=== PATIENT | male | born 2000 | race Caucasian/White ===

== ENCOUNTER 2022-05-23 11:02 | Emergency (ER) | payer OTHER ==
[~2022-05-23] VITALS: Ht 172.7 cm; Wt 80.0 kg
[2022-05-23 11:04] VITALS: BP 120/68
[2022-05-23] MEDS ORDERED: triamcinolone acetonide 0.5% cream 15gm TP STA (12:29)
== END 2022-05-23 12:48 | disposition home or self-care (01) ==
LOC: ER 11:03
DX: L23.7 Allergic contact dermatitis due to plants, except food (principal)
CPT/HCPCS: 99283

== ENCOUNTER 2024-09-11 00:28 | Emergency (ER) | payer OTHER ==
[~2024-09-11] VITALS: Ht 170.2 cm; Wt 81.8 kg
[2024-09-11 00:41] VITALS: BP 122/85; PULSE 91; RESP 12; O2SAT 97
--- NOTE | 2024-09-11 00:56 | Physician Documentation ---
History of Present Illness ~ Chief Complaint: Nose bleed Stated Complaint: NOSE BLEED Time Seen by MD: 00:41 Primary Medical Doctor: NONE- NEW TO [facility] Patient presents to the emergency room with epistaxis. Symptoms began approximately 1/2 hour prior to arrival. No prior instances of bloody noses. Has been suffering from a viral infection this past week with positive sick contacts. No traumas Medication Reconciliation Allergies: Coded Allergies: No Known Allergies (Unverified , 09/11/24) Past Medical History Past Medical History: No Pertinent History Past Surgical History: no surgical history Alcohol Use: None Drug Use: none Lives with: Family Lives In: Home Occupation: employed Review of Systems ROS All review of systems negative except as per HPI Physical Exam Vital Signs: Temperature: 96.9, Source: Temporal, Heart Rate: 91, Respiratory Rate: 12, BP: 122/85, Pulse Oximetry: 97, Weight: 81.850 Oxygen Flow Rate: 0 Physical Exam General: Patient is awake, alert, oriented x4 in no acute distress and well appearing.~ Head: Normocephalic and atraumatic. Eyes: Conjunctival normal. EOMI. PERRL. ENT: Mucous membranes moist. Dried blood in nasal passage of right nostril. No active bleeding. No blood in posterior pharynx Neck: Supple, trachea is midline. Chest: Clear to auscultation bilaterally without rales, rhonchi, or wheezes. There is no accessory muscle use or retractions. Cardiac: RRR without murmurs, gallops, or rubs. Progress Results/Orders Results/Orders Vital Signs 09/11/24 09/11/24 00:32 00:41 Temp 96.9 Pulse 80 91 Resp 15 12 B/P (MAP) 110/65 122/85 (97) Pulse Ox 98 97 O2 Flow Rate 0 Medical Decision Making Findings Patient presents to the emergency room with epistaxis. Differentials include but are not limited to anterior nosebleed, posterior nosebleed, blood dyscrasia. By the time I was able to evaluate patient's symptoms had resolved. Vitals are stable and he had not feel emergent labs or imaging is necessary. Usual management for epistaxis discussed Departure Disposition: HOME / SELF CARE / HOMELESS Impression: Primary Impression: Epistaxis Condition: Improved Discharge Instructions: Nosebleed, Adult Referrals: NO PRIMARY CARE PROVIDER (PCP) Signature Scribe Signature: No scribe Attestation: The note accurately reflects work and decisions made by me.Papi Nichole MD 09/11/24 00:56 PAPI NICHOLE MD September 11, 2024 00:56
[2024-09-11 01:29] VITALS: TEMP 96.9
== END 2024-09-11 01:29 | disposition home or self-care (01) ==
LOC: ER 00:29
DX: R04.0 Epistaxis (principal)
CPT/HCPCS: 99281